=== PATIENT | female | born 1935 | race Caucasian/White ===

== ENCOUNTER 2019-09-17 08:42 | Outpatient (CLI) | payer MEDICARE, SELFPAY ==
[2019-09-17 08:55] LABS: Basophils Percent Auto 0.9 % (0.2-1.2); Eosinophils Absolute Auto 0.3 K/mm3 (0-0.3); Eosinophils Percent Auto 7.3 % (0-4.4); Hematocrit 37.2 % (37.0-47.0); Hemoglobin 12.1 g/dL (12.0-15.0); Immature Granulocyte Absolute 0.01 K/mm3 (0.00-0.031); Immature Granulocyte Percent A 0.2 % (0-0.5); Lymphocytes Absolute Auto 1.51 K/mm3 (0.9-3.2); Lymphocytes Percent Auto 34.5 % (18.3-44.2); Mean Corpuscular HGB Conc 32.5 g/dl (32-36); Mean Corpuscular Hemoglobin 28.3 pg (26-34); Mean Corpuscular Volume 86.9 fl (80-100); Mean Platelet Volume 10.5 fl (7.4-10.4); Monocytes Percent Auto 23.3 % (2.6-8.5); Neutrophils Absolute Auto 1.5 K/mm3 (1.3-6.7); Neutrophils Percent Auto 33.8 % (45.5-73.1); Platelet Count Result 168 k/mm3 (150-375); Red Blood Count 4.28 M/mm3 (4.2-5.4); Red Cell Distribution Width 14.4 % (11.5-14.5); White Blood Count 4.4 K/mm3 (4.5-10.0)
[2019-09-17 12:51] LABS: Alanine Aminotransferase 31 U/L (4-35); Albumin Level 3.5 g/dL (3.5-5.1); Alkaline Phosphatase 168 U/L (38-126); Aspartate Amino Transferase 36 U/L (14-36); Bilirubin,Total 0.6 mg/dL (0.2-1.3); Blood Urea Nitrogen 33 mg/dL (7-17); Calcium 9.2 mg/dL (8.4-10.2); Carbon Dioxide 30 mmol/L (22-30); Chloride 105 mmol/L (98-107); Estimated Glomerular Filt Rate 27; Glucose 123 mg/dL (65-105); Potassium 4.2 mmol/L (3.4-5.0); Sodium 137 mmol/L (137-145)
[2019-09-17 14:05] LABS: Lactate Dehydrogenase 716 U/L (313-618)
[2019-09-17 15:37] LABS: Folic Acid 6.8 ng/mL (2.76->20)
== END 2019-09-17 08:43 | disposition home or self-care (01) ==
PROVIDERS: Internal Medicine Hematology & Oncology; PCP Family Medicine; Visit Provider Physician Assistant
DX: E03.9 Hypothyroidism, unspecified (principal); L03.90 Cellulitis, unspecified; R20.2 Paresthesia of skin; R60.0 Localized edema; E53.8 Deficiency of other specified B group vitamins; D61.818 Other pancytopenia
CPT/HCPCS: 36415; 80053; 82607; 82746; 83615; 84443; 85025

== ENCOUNTER 2020-03-10 09:42 | Emergency (ER) | payer MEDICARE, SELFPAY ==
--- NOTE | ~2020-03-10 | XR_ITS ---
EXAMINATION: XR toe 1st LT min 2V INDICATION: Left first toe pain TECHNIQUE: Four views of the left first toe are obtained. COMPARISON: None available FINDINGS: There is no fracture, dislocation, or subluxation. Mild osteoarthritis is noted in the inte rphalangeal joints and at the first metatarsophalangeal joint. There is fusion of the third distal in terphalangeal joint. Calcified atherosclerosis is noted. IMPRESSION: 1. No acute osseous abnormality. Reviewed, dictated and finalized at location A.
[2020-03-10 09:47] VITALS: BP 165/104; PULSE 59; RESP 16; TEMP 36.8; O2SAT 98
--- NOTE | 2020-03-10 10:00 | ED.LOWEXIN ---
HPI - Extremity Injury (Lower) General Chief Complaint: Extremity Injury, Lower Stated Complaint: left toenail infection Time Seen by Provider: 03/10/20 10:00 Source: patient Mode of arrival: ambulatory Limitations: no limitations History of Present Illness HPI Narrative: Patient is an 84-year-old female with a history of hypertension, mitral valve replacement on Coumadin who presents for evaluation of left great toe irritation. Patient states that her toenail has gotten to the point and then she stubbed her toe causing pain to it approximately 2 days ago. Patient states she has had worsening pain, swelling in the great toe. No discharge. Pain is throbbing in nature without radiation into the ankle or calf. No bruising. No discharge from the toe. Patient is taking Tylenol without much improvement in her symptoms. Related Data Allergies Allergy/AdvReac Type Severity Reaction Status Date / Time erythromycin base Allergy Unknown Rash Verified 03/10/20 10:05 fenofibrate Allergy Unknown Rash Verified 03/10/20 10:05 gemfibrozil Allergy Unknown Rash Verified 03/10/20 10:05 Penicillins Allergy Unknown Rash Verified 03/10/20 10:05 simvastatin Allergy Unknown Rash Verified 03/10/20 10:05 Sulfa (Sulfonamide Allergy Unknown Rash Verified 03/10/20 10:05 Antibiotics) Review of Systems Review of Systems: Narrative: CONSTITUTIONAL: Denies fever CARDIOVASCULAR: Denies chest pain RESPIRATORY: Denies cough or dyspnea. GASTROINTESTINAL: Denies abdominal pain SKIN: Denies rash MUSCULOSKELETAL: Denies back pain NEUROLOGIC: Denies headache PMFSH Past Medical History Medical History Afib Cellulitis Hallucinations Leukocytosis Leukopenia Memory loss Surgical History Surgical History H/O mitral valve replacement History of appendectomy History of cholecystectomy History of hysterectomy with bilateral oophorectomy History of tonsillectomy and adenoidectomy Presence of aortocoronary bypass graft Social History Social History Years smoked: 3 Smoking status: Former smoker Tobacco type: cigarettes Second hand tobacco smoke exposure: No Alcohol intake: current Drinks per week: 1 Substance use: never Substance use type: does not use Gender identity (if verbalized by the patient): Female Exam Narrative: Exam Narrative: GENERAL: Awake, alert, conversant HEAD: Normocephalic, atraumatic. EYES: PERRLA and EOMI. ENT: Nares clear, no rhinorrhea or epistaxis. Mucous membranes moist. NECK: Supple. CHEST: No respiratory distress, breathing even and non labored HEART: Regular rate, sinus rhythm ABDOMEN:Non distended, non tender EXTREMITIES: Normal range of motion. Mild edema left great toe. Erythema present. Minimal warmth. No discharge. Toenail border is irregular. There is no purulent discharge from the lateral borders. There is pain with palpation. DP pulses 2+. Intact distal sensation. SKIN: Warm, dry, no rash. NEURO:No focal deficits. Alert and oriented x3 Course Vital Signs Vital signs: Vital Signs Temperature 36.8 C 03/10/20 09:47 Pulse Rate 59 L 03/10/20 09:47 Respiratory Rate 16 03/10/20 09:47 Blood Pressure 165/104 H 03/10/20 09:47 Pulse Oximetry 98 03/10/20 09:47 Temperature 36.8 C 03/10/20 09:47 Pulse Rate 59 L 03/10/20 09:47 Respiratory Rate 16 03/10/20 09:47 Blood Pressure 165/104 H 03/10/20 09:47 Pulse Oximetry 98 03/10/20 09:47 MDM - Extremity Injury (Lower) MDM Narrative Medical decision making narrative: Patient presented for left great toe irritation after injury to the toenail. There is no sign of purulent discharge from the toenail bed. No ulceration at this point. Appears to be ingrown toenail. Patient is neurovascularly intact. There is mild edema and erythema and we will go ahead and
[2020-03-10] MEDS: traMADol HCL 50 MG TABLET 25 MG PO (10:34)
== END 2020-03-10 11:35 | disposition home or self-care (01) ==
PROVIDERS: Emergency Provider Emergency Medicine; PCP Family Medicine
DX: M79.675 Pain in left toe(s) (principal); L60.0 Ingrowing nail; Z87.891 Personal history of nicotine dependence; I48.91 Unspecified atrial fibrillation
CPT/HCPCS: 73660; 99283; A9270

== ENCOUNTER 2020-06-17 06:57 | Outpatient (NON) | payer MEDICARE, SELFPAY ==
[2020-06-17 16:58] LABS: Influenza Control Positive
== END 2020-06-17 06:58 ==
PROVIDERS: Physician Assistant; PCP Family Medicine; Visit Provider Family Medicine
DX: R53.83 Other fatigue (principal)
CPT/HCPCS: 87804

== ENCOUNTER 2020-07-09 09:05 | Outpatient (CLI) | payer MEDICARE, SELFPAY ==
[2020-07-09 09:21] LABS: Basophils Absolute Auto 0.1 K/mm3 (0.0-0.1); Basophils Percent Auto 1.1 % (0.2-1.2); Eosinophils Absolute Auto 0.4 K/mm3 (0-0.3); Eosinophils Percent Auto 8.5 % (0-4.4); Hematocrit 37.3 % (37.0-47.0); Hemoglobin 11.8 g/dL (12.0-15.0); Immature Granulocyte Absolute 0.01 K/mm3 (0.00-0.031); Immature Granulocyte Percent A 0.2 % (0-0.5); Lymphocytes Absolute Auto 1.33 K/mm3 (0.9-3.2); Lymphocytes Percent Auto 29.6 % (18.3-44.2); Mean Corpuscular HGB Conc 31.6 g/dl (32-36); Mean Corpuscular Hemoglobin 27.4 pg (26-34); Mean Corpuscular Volume 86.7 fl (80-100); Mean Platelet Volume 9.6 fl (7.4-10.4); Monocytes Absolute Auto 0.9 K/mm3 (0.1-0.6); Monocytes Percent Auto 20.5 % (2.6-8.5); Neutrophils Absolute Auto 1.8 K/mm3 (1.3-6.7); Neutrophils Percent Auto 40.1 % (45.5-73.1); Platelet Count Result 259 k/mm3 (150-375); Red Cell Distribution Width 15.9 % (11.5-14.5); White Blood Count 4.5 K/mm3 (4.5-10.0)
[2020-07-09 09:26] LABS: Blood Urea Nitrogen 43 mg/dL (8-26); Carbon Dioxide 22 mmol/L (22-30); Chloride 106 mmol/L (98-109); Estimated Glomerular Filt Rate 27; Glucose 140 mg/dL (70-105); Potassium 3.6 mmol/L (3.5-4.9); Sodium 141 mmol/L (138-146)
[2020-07-09 12:24] LABS: Potassium 3.9 mmol/L (3.4-5.0)
[2020-07-09 12:28] LABS: Alanine Aminotransferase 15 U/L (4-35); Albumin Level 3.7 g/dL (3.5-5.1); Alkaline Phosphatase 144 U/L (38-126); Anion Gap 10 mmol/L (8-16); Aspartate Amino Transferase 27 U/L (14-36); Bilirubin,Total 0.7 mg/dL (0.2-1.3); Blood Urea Nitrogen 47 mg/dL (7-17); Calcium 9.1 mg/dL (8.4-10.2); Carbon Dioxide 22 mmol/L (22-30); Chloride 106 mmol/L (98-107); Estimated Glomerular Filt Rate 31; Glucose 141 mg/dL (65-105); Sodium 138 mmol/L (137-145)
== END 2020-07-09 09:06 | disposition home or self-care (01) ==
LOC: ANHLAB 09:07
PROVIDERS: PCP Family Medicine; Visit Provider Internal Medicine Hematology & Oncology
DX: D61.818 Other pancytopenia (principal)
CPT/HCPCS: 36415; 80048; 80053; 85025

== ENCOUNTER 2020-11-12 12:20 | Inpatient (IN) | payer MEDICARE, SELFPAY ==
[2020-11-12] VITALS (12 sets, daily range): BP systolic 137–168; BP diastolic 51–93; PULSE 54–120; RESP 14–18; TEMP 36.1–36.4; O2SAT 96–100; BMI 19.1
--- NOTE | ~2020-11-12 | XR_ITS ---
EXAMINATION: XR wrist LT min 3V DATE: 11/12/2020 14:37 INDICATION: Left wrist pain. TECHNIQUE: 4 views of left wrist were obtained. COMPARISON: None. FINDINGS: Bone alignment is normal. No fracture. There is mild osteoarthritis of first carpometacarpa l joint and second metacarpophalangeal joint. IMPRESSION: 1. Mild polyarticular osteoarthritis. Reviewed, dictated and finalized at location B.
--- NOTE | ~2020-11-12 | XR_ITS ---
EXAMINATION: XR chest 2V DATE: 11/12/2020 13:03 INDICATION: Weakness. Altered mental status. TECHNIQUE: Frontal and lateral views of the chest were obtained. COMPARISON: Chest 2 views 06/17/2016 FINDINGS: Calcified pulmonary nodules are consistent with old granulomatous disease. No pleural effus ion or pneumothorax. The heart size is normal. There are changes of heart valve replacement. Surgical clips in the right upper quadrant are likely from cholecystectomy. IMPRESSION: 1. No acute cardiopulmonary disease. Reviewed, dictated and finalized at location B.
--- NOTE | ~2020-11-12 | XR_ITS ---
EXAMINATION: XR foot LT min 3V DATE: 11/12/2020 14:36 INDICATION: Left foot pain and swelling TECHNIQUE: Dorsoplantar, two oblique and lateral views of the left foot were obtained. COMPARISON: None. FINDINGS: Alignment is normal. No fracture. Mild osteoarthritis at the third tarsometatarsal and first metatars ophalangeal joints. No cortical erosions or periosteal reaction. Soft tissues are unremarkable. IMPRESSION: 1. Mild osteoarthritis at the third tarsometatarsal and first metatarsophalangeal joints. No acute os seous abnormality. Reviewed, dictated and finalized at location A. IMPRESSION: 1. Mild osteoarthritis at the third tarsometatarsal and first metatarsophalange al joints. No acute osseous abnormality.
--- NOTE | ~2020-11-12 | XR_ITS ---
EXAMINATION: XR foot RT min 3V DATE: 11/12/2020 14:36 INDICATION: Right foot pain. TECHNIQUE: 4 views of right foot were obtained. COMPARISON: None. FINDINGS: Bone alignment is normal. No fracture. There is mild osteoarthritis of talonavicular joint. IMPRESSION: 1. Mild osteoarthritis of talonavicular joint. Reviewed, dictated and finalized at location B.
--- NOTE | ~2020-11-12 | CT_ITS ---
EXAMINATION: CT brain wo con DATE: 11/12/2020 13:13 INDICATION: Altered mental status. TECHNIQUE: Computed tomography (CT) of the head was performed without intravenous contrast. The mA wa s adjusted according to patient size. Iterative reconstruction technique was employed. The dose-lengt h product was 605.33 mGy-cm. COMPARISON: None FINDINGS: There are scattered areas of low attenuation in the cerebral white matter. There is no intr acranial hemorrhage, acute infarction, or abnormal intracranial mass lesion. The ventricles are rl l in size. The paranasal sinuses are clear. There are likely changes of ocular lens replacement surge talya. The mastoid air cells are normal. IMPRESSION: 1. Moderate nonspecific cerebral white matter disease, which likely represents chronic small vessel i schemic disease. Reviewed, dictated and finalized at location B. IMPRESSION: 1. Moderate nonspecific cerebral white matter disease, which likely represents chronic small vessel ischemic disease.
--- NOTE | 2020-11-12 12:32 | ECG_ITS ---
Measurements Intervals [place] Rate: 117 P: HI: 0 QRS: -72 QRSD: 154 T: 94 QT: 380 QTc: 531 Interpretive Statements ATRIAL TACHYCARDIA WITH RAPID VENTRICULAR RESPONSE LEFT AXIS DEVIATION LEFT BUNDLE BRANCH BLOCK ANEROSEPTAL INFARCT OR DUE TO LBBB BASELINE ARTIFACT- I, III, AVR, AVL, AVF, V1 ABNORMAL ECG Electronically Signed On 11-12-2020 13:10:27 CDT by Ken Sexton D.O.
[2020-11-12 12:51] LABS: Hematocrit 39.7 % (37.0-47.0); Hemoglobin 13.1 g/dL (12.0-15.0); Mean Corpuscular Hemoglobin 28.4 pg (26-34); Mean Corpuscular Volume 86.1 fl (80-100); Mean Platelet Volume 9.9 fl (7.4-10.4); Platelet Count Result 291 k/mm3 (150-375); Red Blood Count 4.61 M/mm3 (4.2-5.4); Red Cell Distribution Width 15.2 % (11.5-14.5); White Blood Count 7.5 K/mm3 (4.5-10.0)
[2020-11-12 13:00] LABS: Alanine Aminotransferase 23 U/L (4-35); Albumin Level 4.6 g/dL (3.5-5.1); Alkaline Phosphatase 150 U/L (38-126); Anion Gap 12 mmol/L (8-16); Aspartate Amino Transferase 61 U/L (14-36); Bilirubin,Total 2.8 mg/dL (0.2-1.3); Blood Urea Nitrogen 52 mg/dL (7-17); Carbon Dioxide 21 mmol/L (22-30); Chloride 106 mmol/L (98-107); Estimated CRCL calculation 18 ml/min; Estimated Glomerular Filt Rate 24; Glucose 169 mg/dL (65-105); Potassium 4.6 mmol/L (3.4-5.0); Sodium 139 mmol/L (137-145)
[2020-11-12 13:10] LABS: Band Neutrophils Percent 2 % (0-6); Lymphocytes Absolute Manual 1.05 K/mm3 (1.1-4.5); Monocytes Absolute Manual 1.95 K/mm3 (0.1-0.90); Monocytes Percent Manual 26 % (3-9); Neutrophils Percent Manual 58 % (46-73); Platelet Estimate Adequate (Adequate); Total Cells Counted 100
[2020-11-12 13:24] LABS: Lipase 176 U/L (23-300)
[2020-11-12 13:35] LABS: NT Pro B Type Natriuretic Pept 8550 pg/mL (5-100); Troponin I < 0.012 ng/mL (0.000-0.034)
[2020-11-12] MEDS: SODIUM CHLORIDE 0.9% IV 500 ML 999 ML IV CONT ×2 (13:47→14:31)
[2020-11-12 14:00] LABS: INR 3.7; Prothrombin Time 37.2 Seconds (11.1-14.7)
[2020-11-12 14:01] LABS: Partial Thromboplastin Time 52.3 SECONDS (22.3-36.8)
--- NOTE | 2020-11-12 14:11 | PC.NURSE ---
Report to EMILIANO Garcia, to continue care.
[2020-11-12 14:16] LABS: Lactic Acid Reflex 1.6 mmol/L (0.7-2.1)
[2020-11-12 14:23] LABS: Add Urine Microscopic? YES; Appearance Urine Clear (Clear); Bacteria Urine Trace /hpf; Bilirubin Urine Negative (Negative); Blood Urine 2+ (Negative); Budding Yeast Urine Present /hpf; Color Urine Yellow (Yellow); Glucose Urine UA Negative (Negative); Ketones Urine Negative (Negative); Leukocyte Esterase Ur Negative LEU/UL (Negative); Mucus Urine Rare /lpf; Nitrate Urine Negative (Negative); Protein Urine 3+ mg/dL (Negative); RBC Urine 0-2 /hpf (0-2); Specific Grav Ur 1.012 (1.001-1.035); Urobilinogen Urine Negative mg/dL (<2.0); WBC Urine 0-3 /hpf
[2020-11-12] MEDS: dilTIAZem HCl INJ 25 MG/5 ML VIAL 10 MG IV PUSH (14:32)
--- NOTE | 2020-11-12 14:37 | ECG_ITS ---
Measurements Intervals [place] Rate: 84 P: TX: 0 QRS: -45 QRSD: 153 T: 97 QT: 415 QTc: 491 Interpretive Statements ATRIAL FIBRILLATION LEFT AXIS DEVIATION LEFT BUNDLE BRANCH BLOCK BASELINE ARTIFACT- I, II, III, AVR, AVL, AVF, V1-V6 ABNORMAL ECG Electronically Signed On 11-12-2020 15:17:26 CDT by Ken Sexton D.O.
[2020-11-12 15:25] LABS: CRP 4.8 mg/dL (<1.0)
[2020-11-12 15:26] LABS: Uric Acid 10.2 mg/dL (2.5-7.5)
[2020-11-12] MEDS: methylPREDNISolone SOD SUCC 125 MG VIAL 80 MG IV PUSH (15:57)
[2020-11-12] MEDS: PANTOPRAZOLE SODIUM IV 40 MG VIAL IV PUSH (15:57)
--- NOTE | 2020-11-12 16:07 | ED.GENADULT ---
HPI - General Adult General Chief complaint: Weakness Stated complaint: weakness Time Seen by Provider: 11/12/20 12:57 Source: patient, family, RN notes reviewed and old records reviewed Mode of arrival: ambulatory Limitations: no limitations History of Present Illness HPI narrative: Patient is an 85-year-old female who presents with son for evaluation of pain to the bilateral feet and left wrist patient is in assisted living and attempted to ambulate today and had severe pain in the bilateral feet and left wrist and has since been unable to do so attributed to pain patient notes pain to the bilateral ankles and the left wrist son was with the patient on Tuesday and notes that she had had some mild pain in the feet at that time. Son denies any injury or trauma or similar occurrence in the past. Patient has been compliant with her medications at assisted living. Patient has history of valve replacement atrial fibrillation and chronic kidney disease. Patient is a limited historian secondary to dementia Related Data Home Medications Medication Instructions Recorded Confirmed warfarin [Jantoven] 11/12/20 Allergies Allergy/AdvReac Type Severity Reaction Status Date / Time erythromycin base Allergy Unknown Rash Verified 11/12/20 13:48 fenofibrate Allergy Unknown Rash Verified 11/12/20 13:48 gemfibrozil Allergy Unknown Rash Verified 11/12/20 13:48 Penicillins Allergy Unknown Rash Verified 11/12/20 13:48 simvastatin Allergy Unknown Rash Verified 11/12/20 13:48 Sulfa (Sulfonamide Allergy Unknown Rash Verified 11/12/20 13:48 Antibiotics) Review of Systems Review of Systems: ROS unobtainable: Yes unobtainable due to medical condition [facility] Past Medical History Medical History (Updated 11/12/20 @ 16:14 by Robinson Taylor PA-C) Afib Cellulitis Hallucinations Leukocytosis Leukopenia Memory loss Surgical History Surgical History H/O mitral valve replacement History of appendectomy History of cholecystectomy History of hysterectomy with bilateral oophorectomy History of tonsillectomy and adenoidectomy Presence of aortocoronary bypass graft Family History Family History Father Family history of aortic aneurysm Family history of coronary artery disease Social History Social History Years smoked: 3 Smoking status: Former smoker Tobacco type: cigarettes Second hand tobacco smoke exposure: No Alcohol intake: current Drinks per week: 1 Substance use: never Substance use type: does not use Gender identity (if verbalized by the patient): Female Exam Narrative: Exam Narrative: GENERAL: Well-appearing, well-nourished, and in no acute distress. HEAD: Normocephalic, atraumatic. EYES: PERRLA and EOMI. ENT: Nares clear, no rhinorrhea or epistaxis. Mucous membranes moist. CHEST: Clear to auscultation. No respiratory distress. No wheezes rales or rhonchi HEART: Tachycardic r rate and rhythm. No murmur heard. Normal peripheral pulses. ABDOMEN: Soft, nontender, nondistended EXTREMITIES: Patient with slight swelling and pink to the left wrist joint and to the bilateral ankles with slight edema to the dorsal surfaces of the midfoot. Patient has tenderness with palpation of these areas only remainder of extremities nontender SKIN: Warm, dry, no rash. NEURO: No focal deficits. Alert and oriented to self. Neurovascularly intact. Capillary refill less than 2 seconds PSYCH: Normal mood and affect. Course Course Emergency Course: Patient presented with what appeared to be inflammatory arthropathy found to be in atrial fibrillation with RVR which could be contributed to slight dehydration. Patient was hydrated found to have likely gout as the etiology of her symptoms was given some Cardizem and converted into a normal rate. Patient will be
[2020-11-12 16:36] LABS: Troponin I < 0.012 ng/mL (0.000-0.034)
[2020-11-12 16:36] LABS: Erythrocyte Sedimentation Rate 65 mm/hr (0-20)
[2020-11-12] MEDS: LACTATED RINGERS 1,000 ML 75 ML IV CONT (18:53)
--- NOTE | 2020-11-12 19:07 | ADMGEN ---
This patient, Lori Campos, was admitted to Medical Room 245-. Patient/family oriented to hospital policies and general routines including ID bracelet, bed and alarms, visiting hours, pain management, procedures, bathroom and other care routines, personal items, smoking policy, room service/diet, and visiting hours. Information on how to activate the Rapid Response Team has been discussed. Patient/Family are encouraged to report perceived risks to care and to ask questions if they do not understand what they are told or what they should do.
[2020-11-12 19:45] LABS: Troponin I < 0.012 ng/mL (0.000-0.034)
[2020-11-12] MEDS: methylPREDNISolone SOD SUCC 40 MG VIAL IV PUSH (20:06)
--- NOTE | 2020-11-12 22:08 | PM.IMHP ---
H&P: HPI History of Present Illness Date/Time: 11/12/20 22:08 this is a 85-year-old female patient who resides at [facility]. The the patient was brought to the emergency department for evaluation of pain in both of her feet under left wrist. The patient has a purple bruise to her left hand and I asked if she had an injury she said she might of hit it on the wall. She is on a blood thinner for valve replacement. The patient attempted to ambulate by herself today and was having severe pain in both of her feet in the left wrist. She was unable to ambulate today. She is also having some pain when you touch her feet and left wrist. She has no prior history of gout. The patient has been taking her medications as prescribed. The son was at the bedside earlier today but is no longer there. The patient is not answering the questions for me as she has a history of dementia. Right Foot x-ray was read as mild osteoarthritis of talonavicular joint. Left foot x-ray was read as mild osteoarthritis at the 3rd tarsometatarsal and 1st metatarsophalangeal joints. No acute osseous abnormality. Wrist x-ray was read as mild polyarticular osteoarthritis. Head CT was read as moderate nonspecific cerebral white matter disease, which likely represents chronic small vessel ischemic disease. Chest x-ray was read as no acute cardiopulmonary disease. The patient was started on Solu-Medrol today. IV fluids in the emergency room and Cardizem as her heart rate was in the 1 teens she had AFib with RVR. Now her heart rates in the 30s.-50s. She is asymptomatic with that heart rate. The patient's creatinine was at 2.0 today. Patient's baseline is anywhere from 1.6-2.4. The patient's INR is 3.7. The patient is being admitted to observation status on the date of service of 11/12/2020. Chief Complaint: Difficulty ambulating Review of Systems Review of Systems: All systems reviewed & are unremarkable except as noted in HPI and below Constitutional: Constitutional: Reports as per HPI and Reports no additional constitutional complaints Eyes: Eyes: Reports as per HPI and Reports no additional eye complaints ENT: Reports system reviewed and no additional complaints, except as documented and Reports Normal hearing present Cardiovascular: Cardiovascular: Reports no additional cardiovascular complaints Respiratory: Respiratory: Reports no additional respiratory complaints and Reports no additional respiratory complaints Gastrointestinal: Gastrointestinal: Reports as per HPI and Reports no additional gastrointestinal complaints Musculoskeletal: Musculoskeletal: Reports no additional musculoskeletal complaints Integumentary/Breasts: Skin/Breast: Reports system reviewed and no additional complaints, except as docu and Reports as per HPI Neurologic: Reports system reviewed and no additional complaints, except as documented, Reports as per HPI and Reports Normal hearing present Psychiatric: Psychiatric: Reports no additional psychiatric complaints and Reports as per HPI Endocrine: Endocrine: Reports no additional endocrine complaints Hematologic/Lymphatic: Hematologic/Lymphatic: Reports no additional hematologic/lymphatic complaints Allergic/Immunologic: Allergic/Immunologic: Reports no additional allergic/immunologic complaints [facility] Past Medical History Medical History (Updated 11/12/20 @ 22:32 by Kristy Rosado NP) Afib Cellulitis Chronic kidney disease, stage 3 (moderate) Dementia Hallucinations Hypertension Hypothyroidism Leukocytosis Leukopenia Memory loss Surgical History Surgical History H/O mitral valve replacement History of appendectomy History of cholecystectomy History of hysterectomy with bilateral oophorectomy History of tonsillectomy and adenoidectomy Presence of aortocoronary bypass graft Family History Family History Father
[2020-11-13] VITALS (11 sets, daily range): BP systolic 125–158; BP diastolic 55–83; PULSE 36–88; RESP 14–18; TEMP 36.1–36.5; O2SAT 98–100
[2020-11-13] MEDS: LEVOTHYROXINE SODIUM 75 MCG TABLET PO (05:35)
[2020-11-13 05:38] LABS: Basophils Percent Auto 0.4 % (0.2-1.2); Hematocrit 33.1 % (37.0-47.0); Lymphocytes Absolute Auto 0.36 K/mm3 (0.9-3.2); Lymphocytes Percent Auto 13.5 % (18.3-44.2); Mean Corpuscular HGB Conc 33.2 g/dl (32-36); Mean Corpuscular Hemoglobin 28.8 pg (26-34); Mean Corpuscular Volume 86.6 fl (80-100); Mean Platelet Volume 9.8 fl (7.4-10.4); Monocytes Absolute Auto 0.2 K/mm3 (0.1-0.6); Monocytes Percent Auto 5.6 % (2.6-8.5); Neutrophils Absolute Auto 2.1 K/mm3 (1.3-6.7); Neutrophils Percent Auto 80.5 % (45.5-73.1); Platelet Count Result 157 k/mm3 (150-375); Red Blood Count 3.82 M/mm3 (4.2-5.4); Red Cell Distribution Width 14.7 % (11.5-14.5); White Blood Count 2.7 K/mm3 (4.5-10.0)
[2020-11-13 07:32] LABS: Alanine Aminotransferase 19 U/L (4-35); Albumin Level 3.6 g/dL (3.5-5.1); Alkaline Phosphatase 122 U/L (38-126); Anion Gap 8 mmol/L (8-16); Aspartate Amino Transferase 38 U/L (14-36); Bilirubin,Total 1.1 mg/dL (0.2-1.3); Blood Urea Nitrogen 55 mg/dL (7-17); Calcium 8.9 mg/dL (8.4-10.2); Carbon Dioxide 19 mmol/L (22-30); Chloride 111 mmol/L (98-107); Estimated CRCL calculation 16 ml/min; Estimated Glomerular Filt Rate 25; Glucose 266 mg/dL (65-105); Magnesium 2.1 mg/dL (1.6-2.3); Potassium 3.9 mmol/L (3.4-5.0); Sodium 138 mmol/L (137-145); Uric Acid 9.8 mg/dL (2.5-7.5)
[2020-11-13 07:46] LABS: Prothrombin Time 56.5 Seconds (11.1-14.7)
[2020-11-13 08:00] LABS: INR 6.4
[2020-11-13 08:00] LABS: Thyroid Stimulating Hormone Reflex 0.123 uIU/mL (0.465-4.68)
[2020-11-13] MEDS: LACTATED RINGERS 1,000 ML 75 ML IV CONT (08:00)
[2020-11-13] MEDS: CHOLECALCIFEROL 1,000 UNITS TABLET 1000 UNITS PO (08:01)
[2020-11-13] MEDS: methylPREDNISolone SOD SUCC 40 MG VIAL IV PUSH ×3 (08:02→21:47)
[2020-11-13] MEDS: ATORVASTATIN 20 MG TABLET PO (08:02)
[2020-11-13 08:39] LABS: Free T4 Free Thyroxine Reflex 1.67 ng/dL (0.78-2.19)
[2020-11-13 10:27] LABS: Total Triiodothyronine (T3) 0.49 NG/ML (0.97-1.69)
--- NOTE | 2020-11-13 10:37 | PM.IMPN ---
Progress Note: A&P Assessment and Plan (1) Impaired ambulation: Code(s): R26.2 - Difficulty in walking, not elsewhere classified Status: Acute Assessment and Plan: Patient denies having any pain at this time, using both of her hands/wrists well. no ccontinued on Solu-Medrol for gout fair up and/or osteoarthritis elevated uric acid level at 10.2 and 9.8 PT and OT evaluations which greatly be appreciated. patient is in [facility] and has a decline in her condition perhaps she will need to go to a rehab facility. consulted student career development specialist for placement DVTs unlikely due to supratherapeutic on her INR, no leg pain or redness or swelling. worsening /impaired ambulation may be possible progression of Dementia (2) Dementia: Code(s): F03.90 - Unspecified dementia without behavioral disturbance Status: Chronic Assessment and Plan: patient unable to answer questions at admission very well received IVFs and rehydrated and improved. awake and clear this morning. may be related to Sun-downing and be worse in evening/night. patient is in [facility] living and has change in her condition perhaps she will need to go to a rehab facility. consulted student career development specialist for placement may be possible progression of Dementia (3) Hypothyroidism: Code(s): E03.9 - Hypothyroidism, unspecified Status: Chronic Assessment and Plan: September 2019 TSH >9. With dementia and assisted living independence, perhaps missing doses of meds? Continue with home levothyroxine dose checking her thyroid levels and Vitamin B6 and 12 in morning needs Vitamin D level checked by PCP after discharge. (4) Hypertension: Code(s): I10 - Essential (primary) hypertension Status: Chronic Assessment and Plan: held at admission her amlodipine because Of her low heart rate. held at admission her hydrochlorothiazide because of Renal failure. BPs 125 /59 to 143/58 today with HR 57-68 today continue cardiac telemetry monitoring P.r.n. hydralazine ordered (5) Chronic kidney disease, stage 3 (moderate): Code(s): N18.3 - Chronic kidney disease, stage 3 (moderate) Status: Chronic Assessment and Plan: Stable. likely Near her baseline, creatinine 1.9 rehydrated with IVFs now eating and drinking well without any difficulty dementia may lead her to get dehydrated from time to time. creatinine ranges anywhere from 1.6-2.4. hold her hydrochlorothiazide because of her renal failure. (6) Acute dehydration: Code(s): E86.0 - Dehydration Status: Acute Assessment and Plan: now eating and drinking well without any difficulty Continue with IV fluids reevaluate tomorrow (7) Atrial fibrillation with RVR: Code(s): I48.91 - Unspecified atrial fibrillation Status: Acute Assessment and Plan: none noted keep well hydrated control hypothyroidism with meds heart rhythm regular on exam auscultation (8) H/O mitral valve replacement: Code(s): Z95.2 - Presence of prosthetic heart valve Status: Chronic Assessment and Plan: for mitral valve mechanical INR should be between 2.5 and 3.5 (per patient report too). patient's INR is 3.7 and then chantal to INR 6.4 this morning. held Coumadin yesterday and for tonight. patient stated it was likely because she hadn't been eating. Will recheck her INR tomorrow. (9) Mixed hyperlipidemia: Code(s): E78.2 - Mixed hyperlipidemia Status: Acute Assessment and Plan: Continue with atorvastatin. LFTs wnl. no acute concerns at this time. Subjective Date/time seen: 11/13/20 10:37 Lori is feeling better today than yesterday. PT and OT will be seeing her this morning. She stated she was able to have a good dinner late last night and breakfast this morning, tolerating both with no nausea and vomiting. Lori felt that she was dehydrated at her assisted living facility and that may be what alisha
[2020-11-14] VITALS (7 sets, daily range): BP systolic 147–175; BP diastolic 49–88; PULSE 63–84; RESP 18; TEMP 35.8–36.4; O2SAT 96–100
[2020-11-14] MEDS: LEVOTHYROXINE SODIUM 75 MCG TABLET PO (05:41)
[2020-11-14 07:37] LABS: Hematocrit 30.5 % (37.0-47.0); Hemoglobin 10.2 g/dL (12.0-15.0); Mean Corpuscular HGB Conc 33.4 g/dl (32-36); Mean Corpuscular Hemoglobin 28.4 pg (26-34); Mean Platelet Volume 10.2 fl (7.4-10.4); Platelet Count Result 154 k/mm3 (150-375); Red Blood Count 3.59 M/mm3 (4.2-5.4); Red Cell Distribution Width 14.8 % (11.5-14.5)
[2020-11-14 07:46] LABS: Anion Gap 5 mmol/L (8-16); Blood Urea Nitrogen 63 mg/dL (7-17); Calcium 8.7 mg/dL (8.4-10.2); Carbon Dioxide 22 mmol/L (22-30); Chloride 109 mmol/L (98-107); Estimated CRCL calculation 16 ml/min; Estimated Glomerular Filt Rate 27; Glucose 191 mg/dL (65-105); Sodium 136 mmol/L (137-145)
[2020-11-14 07:51] LABS: Uric Acid 9.3 mg/dL (2.5-7.5)
[2020-11-14 07:55] LABS: Prothrombin Time 57.1 Seconds (11.1-14.7)
[2020-11-14 08:03] LABS: INR 6.5
[2020-11-14 08:09] LABS: White Blood Count 1.9 K/mm3 (4.5-10.0)
[2020-11-14 08:50] LABS: Thyroid Stimulating Hormone Reflex 0.124 uIU/mL (0.465-4.68)
[2020-11-14 08:58] LABS: Folic Acid 7.7 ng/mL (2.76->20)
[2020-11-14 09:16] LABS: Erythrocyte Sedimentation Rate > 140 mm/hr (0-20)
[2020-11-14 09:43] LABS: Free T4 Free Thyroxine Reflex 1.55 ng/dL (0.78-2.19)
[2020-11-14] MEDS: CHOLECALCIFEROL 1,000 UNITS TABLET 1000 UNITS PO (09:49)
[2020-11-14] MEDS: ATORVASTATIN 20 MG TABLET PO (09:49)
--- NOTE | 2020-11-14 10:10 | PM.IMPN ---
Progress Note: A&P Assessment and Plan (1) Impaired ambulation: Code(s): R26.2 - Difficulty in walking, not elsewhere classified Status: Acute Assessment and Plan: IMPROVING. Patient denies having any pain at this time, using both of her hands/wrists well. changed Solu-Medrol to Oral Prednisone taper for gout fair up and/or osteoarthritis elevated uric acid level at 10.2 and 9.8 PT and OT evaluations patient is in telecom assistant living DVTs unlikely due to supratherapeutic on her INR, no leg pain or redness or swelling. worsening /impaired ambulation may be possible progression of Dementia or more likely due to Dehydration (2) Dementia: Code(s): F03.90 - Unspecified dementia without behavioral disturbance Status: Chronic Assessment and Plan: CHRONIC patient unable to answer questions at admission very well, but has odd recollections of driving herself to appointments, going to the library, etc. received IVFs and rehydrated and improved. awake and clear this morning. may be related to Sun-downing and be worse in evening/night. patient is in telecom assistant living and may benefit from [facility] follow ups (RN/PT/OT) at discharge. may be possible progression of Dementia (3) Hypothyroidism: Code(s): E03.9 - Hypothyroidism, unspecified Status: Chronic Assessment and Plan: MEDs TITRATED September 2019 TSH >9. With dementia and assisted living independence, perhaps missing doses of meds? vit b12 and folate WNL, Vitamin B6 pending. TSH in hyper level range = 0.123 and 0.124 Decreased home levothyroxine dose from 75 mcg Levothyroxine daily to 50 mcg Levothyroxine daily needs Vitamin D level checked by PCP after discharge. (4) Hypertension: Code(s): I10 - Essential (primary) hypertension Status: Chronic Assessment and Plan: amlodipine held at admission because Of her low heart rate - able to restart due to HR 78 and BPs 147/79 - 151/86 restarting home Amlodipine today held at admission her hydrochlorothiazide because of Renal failure and Dehydration - will continue to hold. today HR 78 and BPs 147/79 - 151/86 no ectopy - discontinued cardiac telemetry monitoring P.r.n. hydralazine ordered (5) Chronic kidney disease, stage 3 (moderate): Code(s): N18.3 - Chronic kidney disease, stage 3 (moderate) Status: Chronic Assessment and Plan: Stable. likely Near her baseline, creatinine 1.9 rehydrated with IVFs now eating and drinking well without any difficulty dementia may lead her to get dehydrated from time to time. creatinine ranges anywhere from 1.6-2.4. hold her hydrochlorothiazide because of her dehydration and renal failure. (6) Acute dehydration: Code(s): E86.0 - Dehydration Status: Acute Assessment and Plan: RESOLVED. now eating and drinking well without any difficulty able to D/C IVFs today. I/Os: 1100/200ml; 3420ml/200ml; 250ml/900 ml out. appears euvolemic today and well hydrated now reevaluate tomorrow (7) Atrial fibrillation with RVR: Code(s): I48.91 - Unspecified atrial fibrillation Status: Acute Assessment and Plan: HX none noted keep well hydrated control hypothyroidism with meds heart rhythm regular on exam auscultation (8) H/O mitral valve replacement: Code(s): Z95.2 - Presence of prosthetic heart valve Status: Chronic Assessment and Plan: for mitral valve mechanical INR should be between 2.5 and 3.5 (per patient report too). INR was 3.7, then 6.4, and then today 6.5. Coumadin dosing has been held since her admission ordered a low-dose vitamin K to be given today. Repeat her INR tomorrow. Will need to restart her Coumadin dosing once her INR is less than 3.5. Due to her valve replacement for cardiac valve failure, weakness, fall history, and advanced age, it is imperative that we reach a lower, improved INR level prior to discharge. (9) Mixed hyperlipidemia:
[2020-11-14 11:43] LABS: Total Triiodothyronine (T3) 0.53 NG/ML (0.97-1.69)
[2020-11-14] MEDS: predniSONE 20 MG TABLET 60 MG PO (13:19)
[2020-11-14] MEDS: amLODIPine BESYLATE 5 MG TABLET PO (13:19)
[2020-11-14 19:36] LABS: SARS-CoV-2 RNA PCR Negative
[2020-11-15 00:47] VITALS: BP 130/55; PULSE 56; RESP 16; TEMP 36.4; O2SAT 99
[2020-11-15 06:00] VITALS: BP 147/52; PULSE 82; RESP 16; TEMP 36.4; O2SAT 98
[2020-11-15] MEDS: LEVOTHYROXINE SODIUM 50 MCG TABLET PO (06:12)
[2020-11-15 06:46] LABS: Prothrombin Time 31.9 Seconds (11.1-14.7)
[2020-11-15] MEDS: ATORVASTATIN 20 MG TABLET PO (08:34)
[2020-11-15] MEDS: CHOLECALCIFEROL 1,000 UNITS TABLET 1000 UNITS PO (08:34)
[2020-11-15] MEDS: amLODIPine BESYLATE 5 MG TABLET PO ×2 (08:34→14:58)
[2020-11-15] MEDS: predniSONE 20 MG TABLET 40 MG PO (08:35)
[2020-11-15 10:00] VITALS: BP 166/57; PULSE 58; RESP 14; TEMP 36.4; O2SAT 100
[2020-11-15] MEDS: DOCUSATE SODIUM 100 MG CAPSULE PO (10:51)
[2020-11-15 12:21] LABS: Hematocrit 31.9 % (37.0-47.0); Hemoglobin 10.5 g/dL (12.0-15.0); Mean Corpuscular HGB Conc 32.9 g/dl (32-36); Mean Corpuscular Hemoglobin 28.2 pg (26-34); Mean Corpuscular Volume 85.5 fl (80-100); Mean Platelet Volume 11.3 fl (7.4-10.4); Platelet Count Result 190 k/mm3 (150-375); Red Blood Count 3.73 M/mm3 (4.2-5.4); Red Cell Distribution Width 14.7 % (11.5-14.5); White Blood Count 2.9 K/mm3 (4.5-10.0)
[2020-11-15 12:31] LABS: Anion Gap 8 mmol/L (8-16); Blood Urea Nitrogen 64 mg/dL (7-17); Carbon Dioxide 22 mmol/L (22-30); Chloride 104 mmol/L (98-107); Estimated CRCL calculation 17 ml/min; Estimated Glomerular Filt Rate 29; Glucose 300 mg/dL (65-105); Potassium 3.9 mmol/L (3.4-5.0); Sodium 134 mmol/L (137-145)
--- NOTE | 2020-11-15 13:01 | PM.DS ---
DS: Admitting Diagnosis Admitting Diagnosis Admitting Diagnosis: Dehydration, Impaired ambulation, Elevated INR DS: Discharge Diagnosis Discharge Diagnosis (1) Impaired ambulation: Code(s): R26.2 - Difficulty in walking, not elsewhere classified Status: Acute Assessment and Plan: IMPROVING. Patient denies having any pain at this time, using both of her hands/wrists well. changed Solu-Medrol to Oral Prednisone taper for gout fair up and/or osteoarthritis elevated uric acid level at 10.2 and 9.8 and further decrease to 9.3 PT and OT evaluations patient is in finance assistant living DVTs unlikely due to supratherapeutic on her INR, no leg pain or redness or swelling. observed patient ambulating well for past 2 days with staff (2) Dementia: Code(s): F03.90 - Unspecified dementia without behavioral disturbance Status: Chronic Assessment and Plan: CHRONIC patient now able to answer health related questions very well tolerating oral fluids and foods well, eating 100% rehydrated and improved. awake and clear this morning. patient is in finance assistant living and may benefit from Home Health follow ups (RN/PT/OT) at discharge. (3) Hypothyroidism: Code(s): E03.9 - Hypothyroidism, unspecified Status: Chronic Assessment and Plan: MEDs TITRATED September 2019 TSH >9. With dementia and assisted living independence, perhaps missing doses of meds? vit b12 WNL, folate WNL, Vitamin B6 pending. TSH in hyper level range = 0.123 and 0.124 Decreased home levothyroxine dose from 75 mcg Levothyroxine daily to 50 mcg Levothyroxine daily may discuss Vitamin D level checked by PCP after discharge. (4) Hypertension: Code(s): I10 - Essential (primary) hypertension Status: Chronic Assessment and Plan: amlodipine held at admission because Of her low heart rate - restarted due to HR 78 and BPs 147/79 - 151/86 restarting home Amlodipine yesterday held at admission her hydrochlorothiazide because of Renal failure and Dehydration - will continue to hold due to elevated Creatinine. instead raised Norvasc dose to 10 mg for better BP control and discharged on new dose. no ectopy - discontinued cardiac telemetry monitoring instructed to follow-up with her supervisor pile driving Dr. Scanlon at discharge (5) Chronic kidney disease, stage 3 (moderate): Code(s): N18.3 - Chronic kidney disease, stage 3 (moderate) Status: Chronic Assessment and Plan: Stable. likely Near her baseline, creatinine 1.9 rehydrated with IVFs now eating and drinking well without any difficulty dementia may lead her to get dehydrated from time to time. creatinine ranges anywhere from 1.6-2.4. hold her hydrochlorothiazide because of her dehydration and renal failure. instructed to follow-up with her supervisor pile driving Dr. Scanlon at discharge and discuss med changes. (6) Acute dehydration: Code(s): E86.0 - Dehydration Status: Acute Assessment and Plan: RESOLVED. now eating and drinking well without any difficulty able to D/C IVFs today. I/Os: 1100/200ml; 3420ml/200ml; 250ml/900 ml out. appears euvolemic today and well hydrated now (7) Atrial fibrillation with RVR: Code(s): I48.91 - Unspecified atrial fibrillation Status: Acute Assessment and Plan: HX none noted keep well hydrated control hypothyroidism with meds heart rhythm regular on exam auscultation (8) H/O mitral valve replacement: Code(s): Z95.2 - Presence of prosthetic heart valve Status: Chronic Assessment and Plan: for mitral valve mechanical INR should be between 2.5 and 3.5 (per patient report too). INR was 3.7, then 6.4, then 6.5, and INR 3.0 today 3mg Coumadin daily dosing restarted Repeat her INR tuesday with her own INR machine per her son Stanton's report.. Goal 2.5 - 3.5 instructed to follow-up with her supervisor pile driving Dr. Scanlon for further Coumadin dosing instructions on Tuesday based on her
[2020-11-15 14:00] VITALS: BP 154/58; PULSE 59; RESP 14; TEMP 36.2; O2SAT 100
[2020-11-15] MEDS: SENNA/DOCUSATE SODIUM TABLET 1 TAB PO (14:57)
[2020-11-15 16:20] VITALS: BP 142/64
[2020-11-15] MEDS: WARFARIN (*PBKC) 3 MG TABLET PO (16:39)
[2020-11-18 05:02] LABS: Vitamin B6 <2.0 ng/mL (2.1-21.7)
== END 2020-11-15 17:36 | disposition home health service (06) | DRG 641 ==
LOC: ANHED 16:29 → ANH2MED 17:18
PROVIDERS: Emergency Medicine; Emergency Medicine Emergency Medical Services; Nurse Practitioner; Admitting Provider Internal Medicine; Emergency Provider Emergency Medicine; PCP Family Medicine; Visit Provider Family Medicine
DX: E86.0 Dehydration (principal); I48.20 Chronic atrial fibrillation, unspecified; E03.9 Hypothyroidism, unspecified; R26.2 Difficulty in walking, not elsewhere classified; Z20.822 Contact with and (suspected) exposure to COVID-19; F03.90 Unspecified dementia, unspecified severity, without behavioral disturbance, psychotic disturbance, mood disturbance, and anxiety; M19.90 Unspecified osteoarthritis, unspecified site; M10.9 Gout, unspecified; E78.2 Mixed hyperlipidemia; R79.1 Abnormal coagulation profile; N18.30 Chronic kidney disease, stage 3 unspecified; I12.9 Hypertensive chronic kidney disease with stage 1 through stage 4 chronic kidney disease, or unspecified chronic kidney disease; N18.9 Chronic kidney disease, unspecified; D72.829 Elevated white blood cell count, unspecified; Z95.2 Presence of prosthetic heart valve; Z90.49 Acquired absence of other specified parts of digestive tract; Z95.1 Presence of aortocoronary bypass graft; Z87.891 Personal history of nicotine dependence
CPT/HCPCS: 36415; 70450; 71046; 73110; 73630; 80048; 80053; 81001; 82607; 82746; 83605; 83690; 83735; 83880; 84207; 84439; 84443; 84480; 84484; 84550; 85025; 85027; 85610; 85652; 85730; 86140; 93005; 96361; 96365; 96375; 96376; 97110; 97116; 97161; 97165; 97535; 99291; A9270; C9113; C9803; G0378; J0131; J2920; J2930; J7040; J7120; J7512; U0003; U0005

== ENCOUNTER 2020-11-20 11:21 | Outpatient (NON) | payer MEDICARE, SELFPAY ==
[2020-11-20 12:24] LABS: Anion Gap 7 mmol/L (8-16); Blood Urea Nitrogen 62 mg/dL (7-17); Calcium 8.8 mg/dL (8.4-10.2); Carbon Dioxide 23 mmol/L (22-30); Chloride 109 mmol/L (98-107); Estimated Glomerular Filt Rate 27; Glucose 138 mg/dL (65-105); Potassium 3.9 mmol/L (3.4-5.0); Sodium 139 mmol/L (137-145)
== END 2020-11-20 11:22 | disposition home or self-care (01) ==
PROVIDERS: PCP Family Medicine; Visit Provider Family Medicine
DX: I48.91 Unspecified atrial fibrillation (principal); F03.90 Unspecified dementia, unspecified severity, without behavioral disturbance, psychotic disturbance, mood disturbance, and anxiety; I25.10 Atherosclerotic heart disease of native coronary artery without angina pectoris; M10.9 Gout, unspecified
CPT/HCPCS: 80048

== ENCOUNTER 2020-12-12 16:01 | Emergency (ER) | payer MEDICARE, SELFPAY ==
[2020-12-12] VITALS (10 sets, daily range): BP systolic 145–161; BP diastolic 50–68; PULSE 56–99; RESP 13–20; TEMP 36.8–37.6; O2SAT 93–96
--- NOTE | ~2020-12-12 | XR_ITS ---
EXAMINATION: XR foot RT min 3V DATE: 12/12/2020 17:33 INDICATION: Gout presenting with right foot pain TECHNIQUE: Dorsoplantar, two oblique and lateral views of the right foot were obtained. COMPARISON: 11/12/2020 FINDINGS: Alignment is normal. No fracture. Minimal polyarticular osteoarthritis at the talonavicular, first me tatarsophalangeal and a few tarsal metatarsal joints. No cortical erosions. Small enthesopathic ossic le at the calcaneal insertion of the distal Achilles tendon. Soft tissue swelling over the dorsum of the forefoot. IMPRESSION: 1. 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 No acute osseous abnormality. Reviewed, dictated and finalized at location A.
[2020-12-12 20:34] LABS: Hematocrit 28.6 % (37.0-47.0); Hemoglobin 9.1 g/dL (12.0-15.0); Mean Corpuscular HGB Conc 31.8 g/dl (32-36); Mean Corpuscular Hemoglobin 28.4 pg (26-34); Mean Corpuscular Volume 89.4 fl (80-100); Mean Platelet Volume 9.9 fl (7.4-10.4); Platelet Count Result 245 k/mm3 (150-375); Red Cell Distribution Width 16.8 % (11.5-14.5); White Blood Count 4.8 K/mm3 (4.5-10.0)
[2020-12-12 20:42] LABS: INR 3.8
[2020-12-12 20:43] LABS: Alanine Aminotransferase 14 U/L (4-35); Albumin Level 3.7 g/dL (3.5-5.1); Alkaline Phosphatase 120 U/L (38-126); Anion Gap 7 mmol/L (8-16); Aspartate Amino Transferase 42 U/L (14-36); Bilirubin,Total 1.1 mg/dL (0.2-1.3); Blood Urea Nitrogen 38 mg/dL (7-17); Calcium 8.6 mg/dL (8.4-10.2); Carbon Dioxide 24 mmol/L (22-30); Chloride 104 mmol/L (98-107); Estimated CRCL calculation 15 ml/min; Estimated Glomerular Filt Rate 22; Glucose 168 mg/dL (65-105); Partial Thromboplastin Time 74.6 SECONDS (22.3-36.8); Potassium 3.5 mmol/L (3.4-5.0); Sodium 135 mmol/L (137-145)
[2020-12-12 20:53] LABS: Eosinophils Absolute Manual 0.28 K/mm3 (0.02-0.5); Eosinophils Percent Manual 6 % (0-4); Lymphocytes Absolute Manual 0.67 K/mm3 (1.1-4.5); Lymphocytes Percent Manual 14 % (18-44); Monocytes Absolute Manual 0.86 K/mm3 (0.1-0.90); Monocytes Percent Manual 18 % (3-9); Neutrophils Percent Manual 62 % (46-73); Total Cells Counted 100
[2020-12-12 20:54] LABS: Ovalocytes 1+ (NORMAL); Platelet Estimate Adequate (Adequate)
--- NOTE | 2020-12-12 21:02 | ED.GENADULT ---
HPI - General Adult General Chief complaint: Extremity Problem,Nontraumatic Stated complaint: r foot pain Time Seen by Provider: 12/12/20 19:29 Source: patient Mode of arrival: ambulatory Limitations: no limitations History of Present Illness HPI narrative: Patient is a 85 year old female who presents reporting right foot pain and edema starting this a.m. She reports no increased swelling or pain last p.m., woke up with pain, edema and erythema exam. Patient has a history of gout as well as cellulitis. Patient has extensive medical history and is on anticoagulants. She denies injury. She denies all other complaints at this time. MD complaint: Right foot pain Related Data Home Medications Medication Instructions Recorded Confirmed warfarin 4.5 mg PO 3XW 11/12/20 11/12/20 Allergies Allergy/AdvReac Type Severity Reaction Status Date / Time erythromycin base Allergy Unknown Rash Verified 12/12/20 19:51 fenofibrate Allergy Unknown Rash Verified 12/12/20 19:51 gemfibrozil Allergy Unknown Rash Verified 12/12/20 19:51 Penicillins Allergy Unknown Rash Verified 12/12/20 19:51 simvastatin Allergy Unknown Rash Verified 12/12/20 19:51 Sulfa (Sulfonamide Allergy Unknown Rash Verified 12/12/20 19:51 Antibiotics) Review of Systems Review of Systems: Narrative: CONSTITUTIONAL: Denies fever, chills, or sweats. EYES: Denies visual changes, redness, or discharge. ENT: Denies rhinorrhea, congestion, sore throat, or otalgia. CARDIOVASCULAR: Denies chest pain, palpitations, or edema. RESPIRATORY: Denies cough or dyspnea. GASTROINTESTINAL: Denies abdominal pain, nausea, vomiting, or diarrhea. GENITOURINARY: Denies dysuria or hematuria. SKIN: Right foot pain MUSCULOSKELETAL: Denies back pain, joint pain, or myalgia. NEUROLOGIC: Denies headache, numbness, dizziness, or weakness. PSYCHIATRIC: Denies anxiety or depression. [facility] Past Medical History Medical History Afib Cellulitis Chronic kidney disease, stage 3 (moderate) Dementia Hallucinations Hypertension Hypothyroidism Leukocytosis Leukopenia Memory loss Surgical History Surgical History H/O mitral valve replacement History of appendectomy History of cholecystectomy History of hysterectomy with bilateral oophorectomy History of tonsillectomy and adenoidectomy Presence of aortocoronary bypass graft Family History Family History Father Family history of aortic aneurysm Family history of coronary artery disease Social History Social History Social History: The patient resides at assisted living. The chart reflected that the son was with her today and in other records it noted that a daughter was with her. The patient tells me that she has 3 children. According to the records she is a ex-smoker. She is and she is retired. Smoking packs per day: 1 Smoking cigarettes per day: 20.0 Years smoked: 10 Smoking pack-years: 10.00 Smoking status: Former smoker Second hand tobacco smoke exposure: No Alcohol intake: current Drinks per week: 1 Substance use: never Substance use type: does not use Gender identity (if verbalized by the patient): Female Spiritual care concerns: No Comments At the time of signature, I have reviewed and agree with nursing past medical, surgical, social, and family history unless otherwise noted. Please see nursing chart for further information. There is no relevant family history pertinent to the presenting complaint. Exam Narrative: Exam Narrative: GENERAL: Well-appearing, well-nourished, and in no acute distress. HEAD: Normocephalic, atraumatic. EYES: EOMI. No redness or drainage. Conjunctiva are normal. ENT: Mucous membranes pink and moist. CHEST: No respiratory distress. HEART: Re
== END 2020-12-12 21:36 | disposition home or self-care (01) ==
PROVIDERS: Emergency Provider Nurse Practitioner; PCP Family Medicine
DX: I12.9 Hypertensive chronic kidney disease with stage 1 through stage 4 chronic kidney disease, or unspecified chronic kidney disease (principal); N18.30 Chronic kidney disease, stage 3 unspecified; M10.9 Gout, unspecified; Z95.2 Presence of prosthetic heart valve; Z95.1 Presence of aortocoronary bypass graft; Z87.891 Personal history of nicotine dependence; Z79.01 Long term (current) use of anticoagulants; M19.071 Primary osteoarthritis, right ankle and foot; L03.115 Cellulitis of right lower limb
CPT/HCPCS: 36415; 73630; 80053; 85025; 85610; 85730; 99283